=== PATIENT | female | born 1960 | race Caucasian/White ===

== ENCOUNTER 2016-03-21 01:57 | Day surgery (SDC) | payer MEDICARE ==
[~2016-03-21] VITALS: Ht 162.6 cm; Wt 78.6 kg
[2016-03-21] VITALS (9 sets, daily range): BP systolic 110–128; BP diastolic 61–88; PULSE 78–92; RESP 18–20; O2SAT 96–98
[~2016-03-21 01:57] MED LIST: ESOM20CA28 PO; HYDR-3089 PO; HYOS0.1216 PO; LISI1TAB9 PO; SIMV40TA5 PO
[2016-03-21] MEDS ORDERED: LORazepam 1 mg Tablet ONE (09:52)
[2016-03-21] MEDS ORDERED: CYCL5TAB PO (10:05)
[2016-03-21 10:23] LABS: BASOPHILS % (AUTO) 0.3 % (0-3); EOSINOPHILS % (AUTO) 1.2 % (0-5); MONOCYTES % (AUTO) 5.1 % (4-12); Mean Corpuscular Hemoglobin 29.5 pg (27.0-35.0); Mean Corpuscular Volume 87.3 fL (81-100); Platelet Count 270 bil/L (150-400)
[2016-03-21] MEDS ORDERED: Heparin 1,000 Units/500 mL NS Premix IV ONE (10:34)
[2016-03-21] MEDS ORDERED: Heparin 5,000 Units/500 mL NS Premix IV ONE (10:35)
[2016-03-21] MEDS ORDERED: fentaNYL-PF 50 mCg/mL 2 mL Inj ONE ×3 (10:35→11:25)
[2016-03-21 10:44] LABS: INR 0.95 ratio
[2016-03-21] MEDS ORDERED: Nitroglycerin 50,000 mcg/250 mL D5W Premix IV ONE (11:28)
[2016-03-21] MEDS ORDERED: 0.9% Sodium Chloride 250 ML IV PRN (11:42)
[2016-03-21] MEDS ORDERED: 0.9% Sodium Chloride 1,000 ML IV PRN (11:42)
[2016-03-21] MEDS ORDERED: HYDROcodone-APAP 5-325 mg Tablet PO PRN (11:45)
[2016-03-21] MEDS ORDERED: Ondansetron 2 mg/mL 2 mL Inj IVPUSH PRN (11:45)
[2016-03-21] MEDS ORDERED: Atropine 1 mg/10 mL (Code) Syringe IVPUSH PRN (11:45)
--- NOTE | 2016-03-21 13:01 | CS94 ---
[place] [id number] DIAGNOSTIC CARDIAC CATHETERIZATION PATIENT: CLINTON KENNEDY : 1960 MR#: [id number] ADMIT: 03/21/2016 JOB ID: [id number] SERVICE DATE: 03/21/2016 PROCEDURE: 1. Retrograde left heart catheterization. 2. Selective left and right coronary angiography, right groin angiography. 3. Ultrasound-guided access of the right femoral artery. 4. Intracoronary nitroglycerin administration. 5. Left ventricular hemodynamics. INDICATION: History of intermittent chest pains for last one year brought on with exertion and at rest. Given her risk factors, the patient was offered coronary angiography. However she has history of multiple drug allergies and declined to undergo stress testing. Therefore we proceeded with coronary angiography. CONSENT: The patient was explained the risks, benefits, and alternatives of the procedure. Informed signed consent was obtained and placed in the chart. DESCRIPTION OF PROCEDURE: The patient was brought to the greens laborer and placed on the cath table. Both groins were prepped and draped in the usual sterile manner. Lidocaine 1% was infiltrated in the right groin area. Using ultrasound guidance, the right femoral artery was accessed. Using a standard technique a 6-Tajik arterial sheath was placed in the right femoral artery. An FL4 catheter was used to engage the left main coronary artery. Multiple views of the left coronary artery were obtained in multiple projections. Subsequently, the FR4 catheter was used to engage the right coronary artery and right coronary angiography was performed. However, ST-T changes were noted and the patient reported symptoms of chest pressure. Subsequently 100 mcg of nitroglycerin was administered intracoronary and repeat coronary angiography was performed. This did not demonstrate catheter-induced spasms. After the procedure, right groin angiography was performed. An attempt to put in an ExoSeal was made, however the procedure failed, and therefore manual pressure was applied. No other complications noted. The patient was taken out of the greens laborer in stable condition. Total fluoro time 2.3 minutes and total contrast used 55 mL. FINDINGS: The left main coronary artery is angiographically normal. The left anterior descending artery, ramus intermedius, and left circumflex are angiographically normal. The right coronary artery has a catheter-induced spasm that was relieved with intracoronary nitroglycerin. Left ventricular end-diastolic pressure of 11 mmHg. IMPRESSION: 1. Angiographically normal coronaries. 2. Catheter-induced spasm.
--- NOTE | 2016-03-21 16:24 | NUR ---
[facility] DISCHARGE ASSUMED CARE OF PT AT 1515. RIGHT GROIN SOFT, NO BLEEDING, OR HEMATOMA NOTED. PT AMBULATED AFTER BEDREST COMPLETED AND RIGHT GROIN REMAINED SOFT AND NO BLEEDING. DISCHARGE INSTRUCTIONS INCLUDING MEDICATIONS, POST SEDATION AND CARDIAC CATHETERIZATION INSTRUCTIONS WERE REVIEWED AND PT VERBALIZED UNDERSTANDING. F/U WITH DR GARCIA WAS ARRANGED AND PT WAS DISCHARGED AT 1615 WITH AND FRIEND.
[2016-04-03] MEDS ORDERED: HSC.125T PO (18:11)
[2016-04-03] MEDS ORDERED: HYDR-3090 PO (18:11)
[2016-04-04] MEDS ORDERED: CYCL5TAB PO (08:47)
== END 2016-03-21 23:59 | disposition home or self-care (01) ==
LOC: SOUO 01:57
PROVIDERS: ATTEND Internal Medicine Cardiovascular Disease
DX: R07.89 Other chest pain (principal); I10 Essential (primary) hypertension; E78.2 Mixed hyperlipidemia; M79.7 Fibromyalgia; Z85.3 Personal history of malignant neoplasm of breast; Z90.13 Acquired absence of bilateral breasts and nipples; M54.9 Dorsalgia, unspecified
CPT/HCPCS: 36415; 80048; 85025; 85610; 93458; C1760; C1769; J1200; J1644; J2250; Q9967